=== PATIENT | male | born 1990 | race Two or more races ===

== ENCOUNTER 2024-11-30 13:16 | Emergency (ER) | payer SELFPAY ==
[2024-11-30] MEDS: Tetracaine HCl/PF 0.5% 4 ML Bottle EYEBOTH ONE (13:34)
== END 2024-11-30 14:44 | disposition home or self-care (01) ==
LOC: MW.ED 13:16
DX: T15.01XA Foreign body in cornea, right eye, initial encounter (principal); Z75.3 Unavailability and inaccessibility of health-care facilities; W45.8XXA Other foreign body or object entering through skin, initial encounter
CPT/HCPCS: 65205; 99283; 99283-25; J3490